=== PATIENT | male | born 1995 | race Caucasian/White ===

== ENCOUNTER 2017-10-28 12:25 | Emergency (ER) | payer SELFPAY ==
--- NOTE | 2017-10-28 12:37 | ED Physician Documentation ---
General Adult - HISTORIAN Historian: patient - HPI Stated Complaint: "not feeling well" Chief Complaint: Psychological Disorder Onset: other (years ) Timing: still present Severity: mild Further Comments: yes (he states he has had increased anxiety, lack of concentration is making him loose jobs, he is frustrated with himself, he wants to be told "Im ok". After lengthy questions about his issue he states he is wanting to be checked over and a dr tell him he is ok mentally and physcially. He has not shared his years of issues with lack of concentration and anxity with his PCP due to "I didnt know I could talk to her about it" He also reports that he was told from a kid he sold "weed to that the weed was laced with PCP" he wants his blood checked to make sure he is not taking more drugs that what he is aware of. Recently just kelsy) - ROS CONST: sweating. denies: weight loss EYES/ENT: denies: problems with vision, sore throat, nasal drainage, nasal congestion GI/: denies: abdominal pain, problems urinating, vomiting, nausea, diarrhea MS/SKIN/LYMPH: denies: calf pain, neck pain, joint pain, rash NEURO/PSYCH: anxiety, depression. denies: headache, dizziness, numbness, difficulty walking - PAST HX Past History: none Other History: none Surgeries/Procedures: none Immunizations: UTD Allergies/Adverse Reactions: Allergies Allergy/AdvReac Type Severity Reaction Status Date / Time No Known Allergies Allergy Verified 04/10/16 08:48 Home Medications: Ambulatory Orders Medication Instructions Recorded clonazePAM [Klonopin] 0.5 mg PO TID PRN #21 tablet 04/13/16 risperiDONE [Risperdal] 04/13/16 - SOCIAL HX Smoking History: cigarettes Drug Use: cocaine, marijuana, methamphetamines - FAMILY HX Family History: No - VITAL SIGNS Vital Signs: Vital Signs Temp Pulse Resp BP Pulse Ox 113/85 04/13/16 13:35 - REVIEWED ASSESSMENTS Nursing Assessment Reviewed: Yes Vitals Reviewed: Yes Progress - Progress Progress: 1335: pt presents to the desk "I want this IV out now" encouraged him to return to room as i was assisting other pts. DG 1345: Pt in room to discuss lab results and he is holding a bloody paper towel and IV is on the bed. Lab results discussed and is tearful. DG General Adult Physical Exam - PHYSICAL EXAM GENERAL APPEARANCE: moderate distress (tearful) EENT: eye inspection normal, QUENTIN NECK: normal inspection RESPIRATORY: no resp distress, chest non-tender, breath sounds normal CVS: reg rate & rhythm, heart sounds normal, equal pulses, no murmur ABDOMEN: soft, normal bowel sounds BACK: normal inspection SKIN: warm/dry, normal color EXTREMITIES: non-tender, normal range of motion, no evidence of injury, no edema NEURO: oriented X3, CN's nml as tested, motor nml, sensation nml, depressed mood /affect Discharge Clincal Impression: Acute anxiety Referrals: Primary Doctor,No [Primary Care Provider] - 2 Days Comments: 1. Keep appt with Rakesh 2. Follow up with PCP 3. Return to ER for any increased feelings of self harm Condition: Stable Disposition: 01 HOME, SELF-CARE Decision to Admit: NO Date of Decison to Admit: 10/28/17 Decision Time: 13:43
[2017-10-28 13:15] LABS: BASOPHILS % 0.4 (0.0-1.5); EOSINOPHILS % 0.5 % (0.0-6.8); MEAN CORPUSCULAR HEMOGLOBIN 30.8 pg (28.0-34.0); MEAN CORPUSCULAR VOLUME 88.5 fl (80.0-100.0); MONOCYTES % 4.2 % (0.0-11.0); NEUTROPHILS # 6.3 # k/uL (1.4-7.7)
[2017-10-28 13:27] LABS: eGFR (African) > 60; eGFR (Non-African) > 60
[2017-10-28 14:00] VITALS: BP 142/74
[2017-10-29 07:07] LABS: CANNABINOIDS NON NEGATIVE ng/mL (< 50); METHYLENEDIOXYMETHAMPHETAMINE NEGATIVE ng/mL (<500)
== END 2017-10-28 13:58 | disposition home or self-care (01) ==
LOC: ED 12:25
DX: F41.8 Other specified anxiety disorders (principal)
CPT/HCPCS: 80053; 80320; 80377; 85025; 99282; 99283; G0480; G0481; S1016

== ENCOUNTER 2019-02-07 16:46 | Emergency (ER) | payer OTHER ==
--- NOTE | 2019-02-07 17:14 | ED Physician Documentation ---
General Adult - HISTORIAN Historian: patient - HPI Stated Complaint: oral ulcerations/genital warts Chief Complaint: General Adult Additional Information: Patient presents to ED with a 3 month history of oral ulcerations. Patient was diagnosed with genital warts on April 2018, however, could not afford the medication. The genital warts have been spreading. Onset: other (3 months) Timing: still present Severity: moderate - ROS CONST: no problems EYES/ENT: sore throat. denies: problems with vision CVS/RESP: denies: chest pain, shortness of breath GI/: none MS/SKIN/LYMPH: none NEURO/PSYCH: denies: headache - PAST HX Past History: none Other History: none Surgeries/Procedures: none Allergies/Adverse Reactions: Allergies Allergy/AdvReac Type Severity Reaction Status Date / Time Sulfa (Sulfonamide Allergy Unverified 03/15/18 08:23 Antibiotics) Home Medications: Ambulatory Orders Medication Instructions Recorded Acyclovir [Zovirax] 400 mg PO DIRECTED 10 Days #30 02/07/19 tablet Acyclovir [Zovirax] 400 mg PO BID #60 tablet 02/07/19 Imiquimod [Aldara] 1 each TP DIRECTED #12 02/07/19 cream.pack - SOCIAL HX Smoking History: non-smoker Alcohol Use: none Drug Use: none - FAMILY HX Family History: Yes (mother has HSV) - VITAL SIGNS Vital Signs: Vital Signs Temp Pulse Resp BP Pulse Ox 142/74 10/28/17 13:58 - REVIEWED ASSESSMENTS Nursing Assessment Reviewed: Yes Vitals Reviewed: Yes General Adult Physical Exam - PHYSICAL EXAM GENERAL APPEARANCE: no distress EENT: QUENTIN, other (scattered oral ulcerations ) NECK: supple RESPIRATORY: no resp distress, chest non-tender, breath sounds normal CVS: reg rate & rhythm, heart sounds normal ABDOMEN: soft, normal bowel sounds, non-tender BACK: normal inspection SKIN: warm/dry EXTREMITIES: non-tender, no evidence of injury NEURO: oriented X3, motor nml, mood/affect nml Discharge Clincal Impression: HSV (herpes simplex virus) infection, Genital warts due to HPV (human papillomavirus) Prescriptions: Acyclovir [Zovirax] 400 mg PO DIRECTED 10 Days #30 tablet Acyclovir [Zovirax] 400 mg PO BID #60 tablet Imiquimod [Aldara] 1 each TP DIRECTED #12 cream.pack Referrals: Joselito Nguyen MD [Primary Care Provider] - 2 Days Additional Instructions: 1. Tylenol and/or Ibuprofen as needed for pain 2. Apply ice and/or heat to affected area as needed for pain 3. Stay active. Exercise will help 4. Follow up with PCP within 1 week 5. Return to ER for new or worsening symptoms Condition: Stable Disposition: 01 HOME, SELF-CARE Decision to Admit: NO Date of Decison to Admit: 02/07/19 Decision Time: 17:24
[2019-02-07 17:29] VITALS: BP 146/82
== END 2019-02-07 17:41 | disposition home or self-care (01) ==
LOC: ED 16:46
DX: B00.1 Herpesviral vesicular dermatitis (principal); A63.0 Anogenital (venereal) warts